=== PATIENT | female | born 1990 | race African-American/Black ===

== ENCOUNTER 2018-10-09 15:23 | Emergency (ER) | payer SELFPAY ==
[2018-10-09] MEDS ORDERED: Sodium Chloride 0.9% 10 ML Syringe FLUSH PRN (16:44)
[2018-10-09] MEDS ORDERED: Sodium Chloride 0.9% 1,000 ML IV ONE ×2 (16:44→18:40)
[2018-10-09] MEDS ORDERED: Ketorolac 30 MG/ML SDV IVPUSH ONE (16:44)
[2018-10-09] MEDS ORDERED: HYDROmorphone 0.5 MG/0.5 ML Syringe IVPUSH ONE ×2 (18:40→20:53)
[2018-10-09 18:42] LABS: ACETAMINOPHEN 0 ug/mL (10-30)
[2018-10-09 19:31] VITALS: BP 103/76
--- NOTE | 2018-10-09 20:26 | EDM.PDOC ---
ED HPI GENERAL MEDICAL PROBLEM - General Chief Complaint: General Stated Complaint: WEAK,PAIN Time Seen by Provider: 10/09/18 16:20 Source of Information: Reports: Patient, Old Records History Limitations: Reports: No Limitations - History of Present Illness INITIAL COMMENTS - FREE TEXT/NARRATIVE: 28 year old female presents for evaluation and treatment of weakness and pain. Patient was seen in the ER 2 days ago for bilateral rib pain. She had an ekg, chest xray, labs and CT PE study done. Found to have elevated liver enzymes. Hepatitis panel sent off and is pending. Was prescribed tramadol, has been taking this with no relief. Patient presents tonight with generalized pain. Reports pain "all over". Current symptoms include bodyaches, weakness, nausea, vomiting and headaches. Denies any abdominal pain, cough or diarrhea. Is unsure if she has had any fevers. Has appreciated rash to her bilateral forearms, erythematous. Denies any recent travel. No ill contacts. No known mosquito or tick exposure. No known medical conditions. No PCP. Generalized Pain Score (Numeric/FACES): 7 - Related Data Allergies Allergy/AdvReac Type Severity Reaction Status Date / Time No Known Allergies Allergy Verified 10/09/18 16:19 Home Meds: Home Meds traMADol [Ultram] 50 - 100 mg PO Q6H PRN #20 tab 10/07/18 [Rx] Acetaminophen/oxyCODONE [Percocet 325-5 MG] 1 tab PO Q4HR PRN #20 tab 10/09/18 [ Rx] Ondansetron [Zofran ODT] 4 mg PO Q6H PRN #20 tab.dis 10/09/18 [Rx] Past Medical History - Past Health History Medical/Surgical History: Denies Medical/Surgical History [employer]IVER History: Reports: Other [employer]IVER History: history of macrosomic infant. - Past Surgical History GI Surgical History: Reports: Appendectomy Other GI Surgeries/Procedures: Mar 2015. Social & Family History - Family History Family Medical History: Noncontributory - Tobacco Use Smoking Status *Q: Never Smoker - Caffeine Use Caffeine Use: Reports: None - Recreational Drug Use Recreational Drug Use: No - Living Situation & Occupation Living situation: Reports: Occupation: Employed ED ROS GENERAL - Review of Systems Review Of Systems: See Below Constitutional: Reports: Malaise, Weakness, Fatigue. Denies: Fever (unsure) Respiratory: Denies: Cough GI/Abdominal: Reports: Nausea, Vomiting. Denies: Abdominal Pain Musculoskeletal: Reports: Neck Pain, Joint Pain, Muscle Pain Neurological: Reports: Headache ED EXAM, GENERAL - Physical Exam Exam: See Below Exam Limited By: No Limitations General Appearance: Alert, WD/WN, Moderate Distress Eye Exam: Bilateral Eye: Normal Inspection Ears: Normal External Exam Nose: Normal Inspection Throat/Mouth: Normal Inspection, Normal Lips, Normal Oropharynx, Normal Voice, No Airway Compromise Neck: Normal Inspection, Full Range of Motion Respiratory/Chest: No Respiratory Distress, Lungs Clear, Normal Breath Sounds, Chest Non-Tender Cardiovascular: Normal Peripheral Pulses, No Murmur, Tachycardia GI/Abdominal: Normal Bowel Sounds, Soft, Non-Tender Extremities: Normal Inspection. No: Joint Swelling Neurological: Alert, Normal Cognition, Slow to Respond Psychiatric: Normal Affect, Normal Mood Skin Exam: Erythema (bilteral dorsal forearms, no blistering or bruising) Course - Vital Signs Last Recorded V/S: Last Vital Signs Temp 98.2 F 10/09/18 18:55 Pulse 100 10/09/18 19:30 Resp 18 10/09/18 19:30 BP 103/76 10/09/18 19:30 Pulse Ox 100 10/09/18 19:30 - Orders/Labs/Meds Labs: Laboratory Tests 10/09/18 10/09/18 10/09/18 Range/Units 17:15 17:15 17:15 WBC 6.32 (3.98-10.04) K/mm3 RBC 4.80 (3.98-5.22) M/mm3 Hgb 14.5 (11.2-15.7) gm/L Hct 41.1 (34.1-44.9) % MCV 85.6 D (79.4-94.8) fl MCH 30.2 (25.6-32.2) pg MCHC 35.3 (32.2-35.5) g/dl RDW Std Deviation 38.4 (36.4-46.3) fL Plt Count 127 L (182-369) K/mm3 MPV 13.1 H (9.4-12.3) fl Neutrophils % (Manual) 84 H (40-60) % Band Neutrophils % 0 (0-10) % Lymphocytes % (Manual) 11 L (20-40) % Atypical Lymphs % 0 % Monocytes % (Manual) 1 L (2-10) % Eosinophils % (Manual) 4 (0.7-5.8) % Basophils % (Manual) 0 L (0.1-1.2) Platelet Estimate Adequate Plt Morphology Comment Normal RBC Morph Comment Normal Sodium 129 L (136-145) mEq/L Potassium 3.3 L (3.5-5.1) mEq/L Chloride 95 L (98-107) mEq/L Carbon Dioxide 24 (21-32) mEq/L Anion Gap 13.3 (5-15) BUN 6 L (7-18) mg/dL Creatinine 0.9 (0.55-1.02) mg/dL Est Cr Clr Drug Dosing TNP Estimated GFR (MDRD) > 60 (>60) mL/min BUN/Creatinine Ratio 6.7 L (14-18) Glucose 100 (74-106) mg/dL Calcium 8.5 (8.5-10.1) mg/dL Total Bilirubin 2.5 H (0.2-1.0) mg/dL AST 46 H (15-37) U/L ALT 175 H (14-59) U/L Alkaline Phosphatase 110 (46-116) U/L Creatine Kinase (26-192) U/L C-Reactive Protein 23.6 H* (<1.0) mg/dL Total Protein 7.5 (6.4-8.2) g/dl Albumin 3.1 L (3.4-5.0) g/dl Globulin 4.4 gm/dL Albumin/Globulin Ratio 0.7 L (1-2) TSH 3rd Generation 1.739 (0.358-3.74) uIU/mL Urine Color (Yellow) Urine Appearance (Clear) Urine pH (5.0-8.0) Ur Specific [place] (1.005-1.030) Urine Protein (Negative) Urine Glucose (UA) (Negative) Urine Ketones (Negative) Urine Occult Blood (Negative) Urine Nitrite (Negative) Urine Bilirubin (Negative) Urine Urobilinogen (0.2-1.0) Ur Leukocyte Esterase (Negative) Urine RBC (0-5) /hpf Urine WBC (0-5) /hpf Ur Squamous Epith Cells (0-5) /hpf Urine Bacteria (FEW) /hpf Urine Mucus (FEW) /hpf Urine HCG, Qual (NEGATIVE) Acetaminophen (10-30) ug/mL Ethyl Alcohol (0.00) gm% Rheumatoid Factor Scrn (NEGATIVE) West Nile Virus IgM Ab Monoscreen Negative (NEGATIVE) HIV-1 Ab Rapid Screen (NEGATIVE) 10/09/18 10/09/18 10/09/18 Range/Units 17:15 17:15 17:15 WBC (3.98-10.04) K/mm3 RBC (3.98-5.22) M/mm3 Hgb (11.2-15.7) gm/L Hct (34.1-44.9) % MCV (79.4-94.8) fl MCH (25.6-32.2) pg MCHC (32.2-35.5) g/dl RDW Std Deviation (36.4-46.3) fL Plt Count (182-369) K/mm3 MPV (9.4-12.3) fl Neutrophils % (Manual) (40-60) % Band Neutrophils % (0-10) % Lymphocytes % (Manual) (20-40) % Atypical Lymphs % % Monocytes % (Manual) (2-10) % Eosinophils % (Manual) (0.7-5.8) % Basophils % (Manual) (0.1-1.2) Platelet Estimate Plt Morphology Comment RBC Morph Comment Sodium (136-145) mEq/L Potassium (3.5-5.1) mEq/L Chloride (98-107) mEq/L Carbon Dioxide (21-32) mEq/L Anion Gap (5-15) BUN (7-18) mg/dL Creatinine (0.55-1.02) mg/dL Est Cr Clr Drug Dosing Estimated GFR (MDRD) (>60) mL/min BUN/Creatinine Ratio (14-18) Glucose (74-106) mg/dL Calcium (8.5-10.1) mg/dL Total Bilirubin (0.2-1.0) mg/dL AST (15-37) U/L ALT (14-59) U/L Alkaline Phosphatase (46-116) U/L Creatine Kinase 51 (26-192) U/L C-Reactive Protein (<1.0) mg/dL Total Protein (6.4-8.2) g/dl Albumin (3.4-5.0) g/dl Globulin gm/dL Albumin/Globulin Ratio (1-2) TSH 3rd Generation (0.358-3.74) uIU/mL Urine Color (Yellow) Urine Appearance (Clear) Urine pH (5.0-8.0) Ur Specific [place] (1.005-1.030) Urine Protein (Negative) Urine Glucose (UA) (Negative) Urine Ketones (Negative) Urine Occult Blood (Negative) Urine Nitrite (Negative) Urine Bilirubin (Negative) Urine Urobilinogen (0.2-1.0) Ur Leukocyte Esterase (Negative) Urine RBC (0-5) /hpf Urine WBC (0-5) /hpf Ur Squamous Epith Cells (0-5) /hpf Urine Bacteria (FEW) /hpf Urine Mucus (FEW) /hpf Urine HCG, Qual (NEGATIVE) Acetaminophen 0 L (10-30) ug/mL Ethyl Alcohol (0.00) gm% Rheumatoid Factor Scrn Negative (NEGATIVE) West Nile Virus IgM Ab Negative Monoscreen (NEGATIVE) HIV-1 Ab Rapid Screen (NEGATIVE) 10/09/18 10/09/18 10/09/18 Range/Units 17:15 17:15 20:08 WBC (3.98-10.04) K/mm3 RBC (3.98-5.22) M/mm3 Hgb (11.2-15.7) gm/L Hct (34.1-44.9) % MCV (79.4-94.8) fl MCH (25.6-32.2) pg MCHC (32.2-35.5) g/dl RDW Std Deviation (36.4-46.3) fL Plt Count (182-369) K/mm3 MPV (9.4-12.3) fl Neutrophils % (Manual) (40-60) % Band Neutrophils % (0-10) % Lymphocytes % (Manual) (20-40) % Atypical Lymphs % % Monocytes % (Manual) (2-10) % Eosinophils % (Manual) (0.7-5.8) % Basophils % (Manual) (0.1-1.2) Platelet Estimate Plt Morphology Comment RBC Morph Comment Sodium (136-145) mEq/L Potassium (3.5-5.1) mEq/L Chloride (98-107) mEq/L Carbon Dioxide (21-32) mEq/L Anion Gap (5-15) BUN (7-18) mg/dL Creatinine (0.55-1.02) mg/dL Est Cr Clr Drug Dosing Estimated GFR (MDRD) (>60) mL/min BUN/Creatinine Ratio (14-18) Glucose (74-106) mg/dL Calcium (8.5-10.1) mg/dL Total Bilirubin (0.2-1.0) mg/dL AST (15-37) U/L ALT (14-59) U/L Alkaline Phosphatase (46-116) U/L Creatine Kinase (26-192) U/L C-Reactive Protein (<1.0) mg/dL Total Protein (6.4-8.2) g/dl Albumin (3.4-5.0) g/dl Globulin gm/dL Albumin/Globulin Ratio (1-2) TSH 3rd Generation (0.358-3.74) uIU/mL Urine Color Yellow (Yellow) Urine Appearance Clear (Clear) Urine pH 6.0 (5.0-8.0) Ur Specific [place] 1.015 (1.005-1.030) Urine Protein 1+ H (Negative) Urine Glucose (UA) Negative (Negative) Urine Ketones 1+ H (Negative) Urine Occult Blood 2+ H (Negative) Urine Nitrite Negative (Negative) Urine Bilirubin 1+ H (Negative) Urine Urobilinogen 2.0 H (0.2-1.0) Ur Leukocyte Esterase Trace H (Negative) Urine RBC 0-5 (0-5) /hpf Urine WBC 10-20 H (0-5) /hpf Ur Squamous Epith Cells 5-10 H (0-5) /hpf Urine Bacteria Few (FEW) /hpf Urine Mucus Moderate H (FEW) /hpf Urine HCG, Qual (NEGATIVE) Acetaminophen (10-30) ug/mL Ethyl Alcohol 0.00 (0.00) gm% Rheumatoid Factor Scrn (NEGATIVE) West Nile Virus IgM Ab Monoscreen (NEGATIVE) HIV-1 Ab Rapid Screen Negative (NEGATIVE) 10/09/18 Range/Units 20:08 WBC (3.98-10.04) K/mm3 RBC (3.98-5.22) M/mm3 Hgb (11.2-15.7) gm/L Hct (34.1-44.9) % MCV (79.4-94.8) fl MCH (25.6-32.2) pg MCHC (32.2-35.5) g/dl RDW Std Deviation (36.4-46.3) fL Plt Count (182-369) K/mm3 MPV (9.4-12.3) fl Neutrophils % (Manual) (40-60) % Band Neutrophils % (0-10) % Lymphocytes % (Manual) (20-40) % Atypical Lymphs % % Monocytes % (Manual) (2-10) % Eosinophils % (Manual) (0.7-5.8) % Basophils % (Manual) (0.1-1.2) Platelet Estimate Plt Morphology Comment RBC Morph Comment Sodium (136-145) mEq/L Potassium (3.5-5.1) mEq/L Chloride (98-107) mEq/L Carbon Dioxide (21-32) mEq/L Anion Gap (5-15) BUN (7-18) mg/dL Creatinine (0.55-1.02) mg/dL Est Cr Clr Drug Dosing Estimated GFR (MDRD) (>60) mL/min BUN/Creatinine Ratio (14-18) Glucose (74-106) mg/dL Calcium (8.5-10.1) mg/dL Total Bilirubin (0.2-1.0) mg/dL AST (15-37) U/L ALT (14-59) U/L Alkaline Phosphatase (46-116) U/L Creatine Kinase (26-192) U/L C-Reactive Protein (<1.0) mg/dL Total Protein (6.4-8.2) g/dl Albumin (3.4-5.0) g/dl Globulin gm/dL Albumin/Globulin Ratio (1-2) TSH 3rd Generation (0.358-3.74) uIU/mL Urine Color (Yellow) Urine Appearance (Clear) Urine pH (5.0-8.0) Ur Specific [place] (1.005-1.030) Urine Protein (Negative) Urine Glucose (UA) (Negative) Urine Ketones (Negative) Urine Occult Blood (Negative) Urine Nitrite (Negative) Urine Bilirubin (Negative) Urine Urobilinogen (0.2-1.0) Ur Leukocyte Esterase (Negative) Urine RBC (0-5) /hpf Urine WBC (0-5) /hpf Ur Squamous Epith Cells (0-5) /hpf Urine Bacteria (FEW) /hpf Urine Mucus (FEW) /hpf Urine HCG, Qual Negative (NEGATIVE) Acetaminophen (10-30) ug/mL Ethyl Alcohol (0.00) gm% Rheumatoid Factor Scrn (NEGATIVE) West Nile Virus IgM Ab Monoscreen (NEGATIVE) HIV-1 Ab Rapid Screen (NEGATIVE) Meds: Medications Discontinued Medications Generic Name Dose Route Start Last Admin Trade Name Freq PRN Reason Stop Dose Admin Hydromorphone HCl 0.5 mg 10/09/18 18:40 10/09/18 18:53 Dilaudid IVPUSH 10/09/18 18:41 0.5 mg ONETIME ONE Administration Hydromorphone HCl 0.5 mg 10/09/18 20:53 10/09/18 21:03 Dilaudid IVPUSH 10/09/18 20:54 0.5 mg ONETIME ONE Administration Sodium Chloride 1,000 mls @ 999 mls/hr 10/09/18 16:44 10/09/18 17:18 Normal Saline IV 10/09/18 17:44 999 mls/hr ONETIME ONE Administration Sodium Chloride 1,000 mls @ 999 mls/hr 10/09/18 18:40 10/09/18 18:50 Normal Saline IV 10/09/18 19:40 999 mls/hr ONETIME ONE Administration Ketorolac Tromethamine 30 mg 10/09/18 16:44 10/09/18 17:18 Toradol IVPUSH 10/09/18 16:45 30 mg ONETIME ONE Administration Sodium Chloride 10 ml 10/09/18 16:44 10/09/18 17:19 Saline Flush FLUSH 10 ml ASDIRECTED PRN Administration Keep Vein Open - Radiology Interpretation Free Text/Narrative:: chest xray shows no acute intrathoracic process. formal radiology read pending. No change from xray 2 days ago. - Re-Assessments/Exams Free Text/Narrative Re-Assessment/Exam: 10/09/18 10:25 I checked on the patient. Reports no relief with the toradol. Nausea improved. Pain seems to be more from joints rather than muscular. Family members are in her room moving her wrist , ankles and knees for her. Will order Dilaudid for pain. Patient's LFTs have improved from the other day. CRP is quite high. Will check alcohol, acetaminophen, Rheumatoid factor, HIV and west Nile. Hepatitis panel ordered Wednesday, still pending. 10/09/18 20:50 At this point source of paint's joint pains and weakness not clear. I suspect something rheumatological like lupus or RF negative RA. Patient feels improved but continues to have pain. I do not suspect her to be malingering. I reviewed all the labs, ekg and imaging with the patient. I offered admission to the hospital since the cause is not clear. She declines. She would like to go home and follow-up as an outpatient. Encouraged to return if her symptoms change or worsen. Discharge instructions as documented. Departure - Departure Time of Disposition: 20:53 Disposition: Home, Self-Care 01 Condition: Fair Clinical Impression: Joint pain, Elevated liver enzymes - Discharge Information *PRESCRIPTION DRUG MONITORING PROGRAM REVIEWED*: No *COPY OF PRESCRIPTION DRUG MONITORING REPORT IN PATIENT KEL: No Prescriptions: Acetaminophen/oxyCODONE [Percocet 325-5 MG] 1 tab PO Q4HR PRN #20 tab PRN Reason: Pain Ondansetron [Zofran ODT] 4 mg PO Q6H PRN #20 tab.dis PRN Reason: Nausea Instructions: Joint Pain Referrals: PCP,None [Primary Care Provider] - Albert Funk MD [Physician] - Forms: ED Department Discharge Additional Instructions: Follow-up with internal medicine Wednesday or Wednesday this week. recommend Dr. Scar Monae at [facility], call [phone] to schedule with him or Dr. Milian or Dr. Chi at the [facility]. Call [phone] to schedule with one of these providers. Stop the tramadol. May take OTC ibuprofen as needed for pain. Do not take more than 3200mg of ibuprofen in one day. For pain not relieved by ibuprofen may take norco 1 tab PO every 4-6 hours. [place] is habit forming, take as few of these as needed to control your pain. Do not drive or operate machinery within 10 hours of taking norco. You were given medication in the ER that can affect your ability to drive and operate machinery. Do not drive or operate machinery within 10 hours of taking prescription narcotic pain medication. Please return to the ER should your symptoms change or worsen.
--- NOTE | 2018-10-10 06:04 | CR ---
Chest: Two views of the chest were obtained. Comparison: Prior chest x-ray of 10/07/18. Heart size and mediastinum are normal. Slight scoliosis is again noted. Lungs are clear. Impression: 1. Nothing acute is appreciated on two-view chest x-ray. No significant change is seen from previous chest x-ray. Diagnostic code #1
== END 2018-10-09 21:29 | disposition home or self-care (01) ==
LOC: JD.ED 15:23
DX: M25.50 Pain in unspecified joint (principal); R74.8 Abnormal levels of other serum enzymes; L53.9 Erythematous condition, unspecified; Z90.49 Acquired absence of other specified parts of digestive tract
CPT/HCPCS: 36415; 71046; 80053; 81001; 81025; 82550; 84443; 85007; 85027; 86140; 86308; 86430; 86788; 87081; 87430; 96361; 96374; 96375; 96376; 99283; G0433; G0480; J1170; J1885; J7040

== ENCOUNTER 2020-01-03 05:59 | Emergency (ER) | payer BC, SELFPAY ==
[2020-01-03 06:21] VITALS: BP 106/69; PULSE 97
--- NOTE | 2020-01-03 06:34 | EDM.PDOC ---
<JennaAbdon fontenot Antoni - Last Filed: 01/03/20 09:51> ED HPI GENERAL MEDICAL PROBLEM - General Chief Complaint: Abdominal Pain Stated Complaint: ABDOMINAL PAIN Time Seen by Provider: 01/03/20 06:09 - Related Data Allergies Allergy/AdvReac Type Severity Reaction Status Date / Time No Known Allergies Allergy Verified 10/09/18 16:19 Home Meds: Home Meds Diclofenac Sodium [Voltaren] 75 mg PO BIDMEALS #8 tab.cr 01/03/20 [Rx] oxyCODONE HCl/Acetaminophen [Percocet 5-325 mg Tablet] 1 - 2 each PO Q4H PRN #14 tablet 01/03/20 [Rx] polyethylene glycoL 3350 [MiraLAX] 17 gm PO DAILY #1 canister 01/03/20 [Rx] Course - Re-Assessments/Exams Free Text/Narrative Re-Assessment/Exam: 01/03/20 07:02 Care has been assumed from Dr Pedersen as it is change of shift . On re assessment she is very uncomfortable especially in her perineum. Unable to sit. Pain is sharp and stabbing. Few bowl sounds on examination. no guarding or rebound tenderness. Pain is worse suprapubically. Plan: routine labs. IV D5 Normal saline at 150,mls per hour. Given Dilaudid 0.5mg IV and Zofran 4mg IV. KUB and transvaginal ultrasound to be done. Routine labs as well. urine has been collected. 01/03/20 08:10 Labs reveal a normal white count at 3.98. Differential is 60% neutrophils on the auto differential. Hemoglobin is 12.8 with hematocrit 39.2. Platelet count is slightly low at 143,000. Sodium 139 with a potassium of 3.7. Chloride 104 with a bicarb of 26. Anion gap is 12.7. BUN is 13 with a creatinine of 0.7 GFR is greater than 60. Glucose is 80. Calcium 8.4 total bilirubin is 0.7 the remainder the liver function is normal. C-reactive protein is 0.2. Total protein 7.4 with an albumin fraction of 3.8. Urinalysis is completely normal and beta hCG in the urine is negative. 01/03/20 08:19 transvaginal ultrasound has been completed. Uterus appears normal with normal endometrial stripe. Right adnexa no mass normal ovarian blood flow. Left adnexa there is a 23 x 15 x 14 mm left ovarian cyst there is good flow within the left ovary. There is a small amount of free fluid in the cul-de-sac. 01/03/20 09:51 clinically patient most likely has a ruptured left ovarian cyst with a small amount of fluid in the cul-de-sac. She is still having significant pain down her pelvis rating down into the buttock particular on the left side. KUB reveals increased stool throughout the right hemicolon portions of the descending colon. Plan will be to discharge her to home to use Elder 75 mg twice daily for the next 4 days to relieve pain and inflammation and Percocet tabs 5/325 mg strength 1 tablet every 4-6 hours necessary for pain relief. Note will be given to excuse her from the workplace for the next 3 days. Departure - Departure Time of Disposition: 09:52 Disposition: Home, Self-Care 01 Condition: Fair Clinical Impression: Pelvic pain, Ruptured cyst of left ovary - Discharge Information *PRESCRIPTION DRUG MONITORING PROGRAM REVIEWED*: Not Applicable *COPY OF PRESCRIPTION DRUG MONITORING REPORT IN PATIENT KEL: Not Applicable Prescriptions: polyethylene glycoL 3350 [MiraLAX] 17 gm PO DAILY #1 canister oxyCODONE HCl/Acetaminophen [Percocet 5-325 mg Tablet] 1 - 2 each PO Q4H PRN #14 tablet PRN Reason: pain relief. Diclofenac Sodium [Voltaren] 75 mg PO BIDMEALS #8 tab.cr Instructions: Ovarian Cyst, [id number] Referrals: PCP,None [Primary Care Provider] - Forms: ED Department Discharge, ED Return to Work/School Form <Rod Pedersen - Last Filed: 01/03/20 18:05> ED HPI GENERAL MEDICAL PROBLEM - General Source of Information: Reports: Patient History Limitations: Reports: No Limitations - History of Present Illness INITIAL COMMENTS - FREE TEXT/NARRATIVE: Ms. Jamil is a very pleasant 29-year-old woman who now presents to the ED with a complaint of sharp suprapubic abdominal pain that developed this morning. Pain has been waxing and waning since it developed. She states that she feels somewhat better if she stands. No associated fever, nausea, vomiting, constipation, diarrhea, or urinary symptoms. The patient did not take any [id number] or home remedies prior to coming to the ED. The patient states that she has had similar symptoms about 3 times since last year. She states that all of them resolved on their own without treatment. She did not seek medical attention for any of them. The patient's LMP was 12/19/2019. Here in the ED, the patient is found to be hemodynamically stable, afebrile, saturating 100% on room air. Prior to this morning, the patient denies having a recent fever, chills, sore throat, ear pain, nasal or sinus congestion, cough, dyspnea, chest pain, palpitations, nausea, vomiting, constipation, diarrhea, abdominal pain, urinary symptoms, recent weight gain or weight loss, recent bloody bowel movements or black bowel movements, recent joint aches, headaches, or rashes. The patient does not have a PCP. She did receive an influenza vaccine this season. Abdomen Pain Score (Numeric/FACES): 8 Past Medical History : 3 Para: 3 - Past Surgical History GI Surgical History: Reports: Appendectomy (Mar 2015) Social & Family History - Family History Family Medical History: No Pertinent Family History - Tobacco Use Tobacco Use Status *Q: Never Tobacco User Second Hand Smoke Exposure: No - Caffeine Use Caffeine Use: Reports: Coffee - Alcohol Use Alcohol Use History: Yes Alcohol Use Frequency: Socially - Recreational Drug Use Recreational Drug Use: No - Living Situation & Occupation Living situation: Reports: Single, with Family (Daughter) Occupation: Employed (Housekeeping at [employer]) ED ROS GENERAL - Review of Systems Review Of Systems: Comprehensive ROS is negative, except as noted in HPI. ED EXAM, GI/ABD - Physical Exam Exam: See Below Exam Limited By: No Limitations General Appearance: Alert, WD/WN, No Apparent Distress Eyes: Bilateral: Normal Appearance, EOMI Ears: Normal External Exam, Hearing Grossly Normal Nose: Normal Inspection Throat/Mouth: Normal Inspection, Normal Lips, Normal Voice, No Airway Compromise Head: Atraumatic, Normocephalic Neck: Normal Inspection, Full Range of Motion Respiratory/Chest: No Respiratory Distress, Lungs Clear, Normal Breath Sounds, No Accessory Muscle Use Cardiovascular: Normal Peripheral Pulses, Regular Rate, Rhythm, No Edema, No Gallop, No JVD, No Murmur, No Rub GI/Abdominal Exam: Normal Bowel Sounds, Soft, No Organomegaly, No Distention, No Abnormal Bruit, No Mass, Tender (Reproducible, to right of midline suprapubically. Nontender elsewhere.) Back Exam: Normal Inspection, Full Range of Motion. No: CVA Tenderness (L), CVA Tenderness (R) Extremities: Normal Inspection, Normal Range of Motion, No Pedal Edema, Normal Capillary Refill Neurological: Alert, Oriented, Normal Cognition, No Motor/Sensory Deficits Psychiatric: Normal Affect Skin Exam: Warm, Dry, Intact, Normal Color, No Rash Course - Vital Signs Last Recorded V/S: Last Vital Signs Temp 36.2 C 01/03/20 06:07 Pulse 97 01/03/20 06:07 Resp 16 01/03/20 06:07 BP 106/69 01/03/20 06:07 Pulse Ox 100 01/03/20 06:07 - Orders/Labs/Meds Labs: Laboratory Tests 01/03/20 01/03/20 01/03/20 Range/Units 06:50 06:50 07:05 WBC 3.98 (3.98-10.04) K/mm3 RBC 4.27 (3.98-5.22) M/mm3 Hgb 12.8 (11.2-15.7) gm/dl Hct 39.2 (34.1-44.9) % MCV 91.8 (79.4-94.8) fl MCH 30.0 (25.6-32.2) pg MCHC 32.7 (32.2-35.5) g/dl RDW Std Deviation 42.9 (36.4-46.3) fL Plt Count 143 L (182-369) K/mm3 MPV 12.8 H (9.4-12.3) fl Neut % (Auto) 60.3 (34.0-71.1) % Lymph % (Auto) 32.4 (19.3-51.7) % Carbon % (Auto) 5.5 (4.7-12.5) % Eos % (Auto) 1.0 (0.7-5.8) Baso % (Auto) 0.5 (0.1-1.2) % Neut # (Auto) 2.40 (1.56-6.13) K/mm3 Lymph # (Auto) 1.29 (1.18-3.74) K/mm3 Carbon # (Auto) 0.22 L (0.24-0.36) K/mm3 Eos # (Auto) 0.04 (0.04-0.36) K/mm3 Baso # (Auto) 0.02 (0.01-0.08) K/mm3 Sodium (136-145) mEq/L Potassium (3.5-5.1) mEq/L Chloride (98-107) mEq/L Carbon Dioxide (21-32) mEq/L Anion Gap (5-15) BUN (7-18) mg/dL Creatinine (0.55-1.02) mg/dL Est Cr Clr Drug Dosing Estimated GFR (MDRD) (>60) mL/min BUN/Creatinine Ratio (14-18) Glucose (74-106) mg/dL Calcium (8.5-10.1) mg/dL Total Bilirubin (0.2-1.0) mg/dL AST (15-37) U/L ALT (14-59) U/L Alkaline Phosphatase (46-116) U/L C-Reactive Protein (<1.0) mg/dL Total Protein (6.4-8.2) g/dl Albumin (3.4-5.0) g/dl Globulin gm/dL Albumin/Globulin Ratio (1-2) Urine Color Light yellow (Yellow) Urine Appearance Clear (Clear) Urine pH 6.5 (5.0-8.0) Ur Specific [place] 1.020 (1.005-1.030) Urine Protein Negative (Negative) Urine Glucose (UA) Negative (Negative) Urine Ketones Negative (Negative) Urine Occult Blood Negative (Negative) Urine Nitrite Negative (Negative) Urine Bilirubin Negative (Negative) Urine Urobilinogen 0.2 (0.2-1.0) Ur Leukocyte Esterase Negative (Negative) Urine RBC 0-5 (0-5) /hpf Urine WBC 0-5 (0-5) /hpf Ur Squamous Epith Cells 0-5 (0-5) /hpf Urine Bacteria Few (FEW) /hpf Urine Mucus Rare (FEW) /hpf Urine HCG, Qual Negative (NEGATIVE) 01/03/20 Range/Units 07:05 WBC (3.98-10.04) K/mm3 RBC (3.98-5.22) M/mm3 Hgb (11.2-15.7) gm/dl Hct (34.1-44.9) % MCV (79.4-94.8) fl MCH (25.6-32.2) pg MCHC (32.2-35.5) g/dl RDW Std Deviation (36.4-46.3) fL Plt Count (182-369) K/mm3 MPV (9.4-12.3) fl Neut % (Auto) (34.0-71.1) % Lymph % (Auto) (19.3-51.7) % Carbon % (Auto) (4.7-12.5) % Eos % (Auto) (0.7-5.8) Baso % (Auto) (0.1-1.2) % Neut # (Auto) (1.56-6.13) K/mm3 Lymph # (Auto) (1.18-3.74) K/mm3 Carbon # (Auto) (0.24-0.36) K/mm3 Eos # (Auto) (0.04-0.36) K/mm3 Baso # (Auto) (0.01-0.08) K/mm3 Sodium 139 (136-145) mEq/L Potassium 3.7 (3.5-5.1) mEq/L Chloride 104 (98-107) mEq/L Carbon Dioxide 26 (21-32) mEq/L Anion Gap 12.7 (5-15) BUN 13 (7-18) mg/dL Creatinine 0.7 (0.55-1.02) mg/dL Est Cr Clr Drug Dosing TNP Estimated GFR (MDRD) > 60 (>60) mL/min BUN/Creatinine Ratio 18.6 H (14-18) Glucose 80 (74-106) mg/dL Calcium 8.4 L (8.5-10.1) mg/dL Total Bilirubin 0.7 (0.2-1.0) mg/dL AST 14 L (15-37) U/L ALT 22 (14-59) U/L Alkaline Phosphatase 29 L (46-116) U/L C-Reactive Protein 0.2 (<1.0) mg/dL Total Protein 7.4 (6.4-8.2) g/dl Albumin 3.8 (3.4-5.0) g/dl Globulin 3.6 gm/dL Albumin/Globulin Ratio 1.1 (1-2) Urine Color (Yellow) Urine Appearance (Clear) Urine pH (5.0-8.0) Ur Specific [place] (1.005-1.030) Urine Protein (Negative) Urine Glucose (UA) (Negative) Urine Ketones (Negative) Urine Occult Blood (Negative) Urine Nitrite (Negative) Urine Bilirubin (Negative) Urine Urobilinogen (0.2-1.0) Ur Leukocyte Esterase (Negative) Urine RBC (0-5) /hpf Urine WBC (0-5) /hpf Ur Squamous Epith Cells (0-5) /hpf Urine Bacteria (FEW) /hpf Urine Mucus (FEW) /hpf Urine HCG, Qual (NEGATIVE) Meds: Medications Discontinued Medications Generic Name Dose Route Start Last Admin Trade Name Freq PRN Reason Stop Dose Admin Hydromorphone HCl 0.5 mg 01/03/20 06:59 01/03/20 07:23 Dilaudid IVPUSH 01/03/20 07:00 0.5 mg ONETIME ONE Administration Dextrose/Sodium Chloride 1,000 mls @ 150 mls/hr 01/03/20 07:00 01/03/20 07:26 Dextrose 5%-Normal Saline IV 150 mls/hr ASDIRECTED ADRIANA Administration Ketorolac Tromethamine 30 mg 01/03/20 10:00 Toradol IVPUSH ONETIME ADRIANA Ondansetron HCl 4 mg 01/03/20 06:59 01/03/20 07:21 Zofran IVPUSH 01/03/20 07:00 4 mg ONETIME ONE Administration - Re-Assessments/Exams Free Text/Narrative Re-Assessment/Exam: 01/03/20 06:30 As above, the patient developed suprapubic abdominal pain radiating through to her lower back this morning. No associated fever, nausea, vomiting, constipation, diarrhea, or urinary symptoms. Of interest, she states that she has had similar symptoms 3 times since last year, and that they always resolved on their own. This suggests an ovarian cyst. She is hemodynamically stable and afebrile. Her physical exam is remarkable for suprapubic/right lower quadrant abdominal tenderness, but is otherwise unremarkable, including no CVA tenderness. I have ordered a urinalysis and urine test, but I do not see an indication for blood work or an imaging study at this time. 01/03/20 07:[address] West, and care of the patient turned over to him at this time, for change of shift. Sepsis Event Note (ED) - Evaluation Sepsis Screening Result: No Definite Risk - Focused Exam Vital Signs: Vital Signs Temp Pulse Resp BP Pulse Ox 01/03/20 06:07 36.2 C 97 16 106/69 100
[2020-01-03] MEDS ORDERED: Ondansetron 4 MG/2 ML SDV IVPUSH ONE (06:59)
[2020-01-03] MEDS ORDERED: HYDROmorphone 0.5 MG/0.5 ML Syringe IVPUSH ONE (06:59)
[2020-01-03] MEDS ORDERED: Dextrose 5%-0.9% NaCl 1,000 ML IV SCH (07:00)
--- NOTE | 2020-01-03 08:52 | US ---
PROCEDURE INFORMATION: Exam: US Pelvis, Transvaginal Exam date and time: 01/03/2020 7:23 AM Age: 29 years old Clinical indication: Pelvic pain and perianal pain TECHNIQUE: Imaging protocol: Real-time transvaginal pelvic ultrasound with image documentation. Transvaginal imaging was used for better evaluation of the endometrium, adnexa, and/or cervix. COMPARISON: US OB Transvaginal 03/29/2015 11:13 AM FINDINGS: Uterus/cervix: Uterus is normal. Endometrial stripe is normal. Right adnexa: Normal. No mass. Normal ovarian blood flow. Left adnexa: There is a 23 x 15 x 14 mm left ovary cyst. There is flow within the left ovary. Intraperitoneal space: There is a small amount of free fluid. IMPRESSION: Left ovarian cyst with a small amount of free fluid. Thank you for allowing us to participate in the care of your patient. Dictated and Authenticated by: Edmar Damon MD 01/03/2020 9:17 AM Central Time ([place] & [place]) ANGELA
[2020-01-03] MEDS ORDERED: Ketorolac 30 MG/ML SDV IVPUSH SCH (10:00)
--- NOTE | 2020-01-03 10:24 | CR ---
PROCEDURE INFORMATION: Exam: XR Abdomen, 1 View Exam date and time: 01/03/2020 8:29 AM Age: 29 years old Clinical indication: Abdominal pain TECHNIQUE: Imaging protocol: XR of the abdomen. Views: Frontal supine view of the abdomen. 1 View. COMPARISON: No relevant prior studies available. FINDINGS: Gastrointestinal tract: There there is air within large and small bowel. Small bowel is slightly prominent at 26 mm. Bones/joints: Unremarkable. IMPRESSION: Findings suggest an ileus although early obstruction cannot be excluded. Thank you for allowing us to participate in the care of your patient. Dictated and Authenticated by: Edmar Damon MD 01/03/2020 11:08 AM Central Time ([place] & [place]) ANGELA
== END 2020-01-03 10:15 | disposition home or self-care (01) ==
LOC: JD.ED 05:59
DX: N83.202 Unspecified ovarian cyst, left side (principal)
CPT/HCPCS: 36415; 74018; 76830; 80053; 81001; 81025; 85025; 86140; 96374; 96375; 99284; J1170; J2405; J7042

== ENCOUNTER 2021-09-27 11:27 | Emergency (ER) | payer BC, SELFPAY ==
[2021-09-27] MEDS ORDERED: Ketorolac 30 MG/ML SDV IM ONE (11:44)
[2021-09-27 11:48] VITALS: BP 120/90; PULSE 100
[2021-09-27 13:04] LABS: CORONAVIRUS COVID-19 NAA POSITIVE (NEGATIVE)
== END 2021-09-27 13:25 | disposition home or self-care (01) ==
LOC: JD.ED 11:27
DX: U07.1 COVID-19 (principal); Z90.49 Acquired absence of other specified parts of digestive tract
CPT/HCPCS: 0240U; 96372; 99283; J1885; 99284

== ENCOUNTER 2023-08-07 19:20 | Emergency (ER) | payer BC ==
[2023-08-07 20:24] LABS: BASOPHILS PERCENT AUTO 0.1 % (0.0-1.0); EOSINOPHILS ABSOLUTE AUTO 0.2 K/mm3 (0.0-0.4); EOSINOPHILS PERCENT AUTO 2.3 % (0.0-6.0); HEMATOCRIT 39.3 % (37.0-47.0); HEMOGLOBIN 13.6 gm/dl (12.0-16.0); IMMATURE GRAN ABSOLUTE AUTO 0.03 K/mm3 (0.00-0.05); IMMATURE GRAN PERCENT AUTO 0.3 % (0.0-0.4); LYMPHOCYTES ABSOLUTE AUTO 0.5 K/mm3 (1.0-4.8); LYMPHOCYTES PERCENT AUTO 5.7 % (24.0-44.0); MEAN CORPUSCULAR HEMOGLOBIN 30.9 pg (28.0-32.0); MEAN CORPUSCULAR HGB CONC 34.6 g/dl (32.0-36.0); MEAN CORPUSCULAR VOLUME 89.3 fl (83.0-99.0); MONOCYTES ABSOLUTE AUTO 0.5 K/mm3 (0.0-0.8); MONOCYTES PERCENT AUTO 5.3 % (0.0-8.0); NEUTROPHILS ABSOLUTE AUTO 7.9 K/mm3 (1.8-7.7); NEUTROPHILS PERCENT AUTO 86.3 % (41.0-71.0); PLATELET COUNT,PLT 146 K/mm3 (150-400); WHITE BLOOD CELL COUNT,WBC 9.16 K/mm3 (3.9-11.3)
[2023-08-07 20:31] LABS: ALBUMIN 3.5 g/dl (3.4-5.0); ANION GAP 15.5 (5-15); BILIRUBIN TOTAL 1.2 mg/dL (0.2-1.0); BUN/CREATININE RATIO 21.3 (14-18); C-REACTIVE PROTEIN 0.1 mg/dL (<0.30); CALCIUM 8.2 mg/dL (8.5-10.1); CREATININE 0.8 mg/dL (0.55-1.02); EST CRCL DRUG DOSING (CG) 88.32 mL/min; POTASSIUM,K 3.5 mEq/L (3.5-5.1); PROTEIN TOTAL,TP 7.2 g/dl (6.4-8.2)
[2023-08-07] MEDS: Ondansetron 4 MG/2 ML SDV IVPUSH ONE (20:49)
[2023-08-07] MEDS: Sodium Chloride 0.9% 10 ML Syringe FLUSH PRN (20:49)
[2023-08-07] MEDS: Sodium Chloride 0.9% 1,000 ML IV STA (20:49)
[2023-08-07 21:46] LABS: APPEARANCE,URINE CLEAR (Clear); BILIRUBIN,URINE NEGATIVE (Negative); COLOR,URINE YELLOW (Yellow); GLUCOSE,URINE NEGATIVE (Negative); KETONES,URINE NEGATIVE (Negative); LEUKOCYTE ESTERASE,URINE NEGATIVE (Negative); NITRITE,URINE NEGATIVE (Negative); OCCULT BLOOD,URINE NEGATIVE (Negative); PROTEIN,URINE NEGATIVE (Negative); UROBILINOGEN,URINE 0.2 (0.2-1.0)
[2023-08-08 00:24] VITALS: BP 108/77; PULSE 85
== END 2023-08-07 22:14 | disposition home or self-care (01) ==
LOC: JD.ED 19:20
DX: R11.2 Nausea with vomiting, unspecified (principal); Z90.49 Acquired absence of other specified parts of digestive tract
CPT/HCPCS: 36415; 80053; 81003; 81025; 83690; 85025; 86140; 96361; 96374; 99284; 99284-25; J2405; J3490; J7030